=== PATIENT | female | born 1965 | race Caucasian/White ===

== ENCOUNTER 2023-12-03 15:29 | Emergency (ER) | payer OTHER, SELFPAY ==
[2023-12-03 15:58] VITALS: BP 162/92; PULSE 76; RESP 16; TEMP 36.7; O2SAT 98; BMI 27.2
--- NOTE | 2023-12-03 17:31 | ED.SKABFB ---
HPI - Skin/Abscess/Foreign Bdy General Chief complaint: Skin/Abscess/Foreign Body Stated complaint: finger lac Time Seen by Provider: 12/03/23 16:48 Source: patient and RN notes reviewed Mode of arrival: ambulatory Limitations: no limitations History of Present Illness ED Provider: Lidia Jeong PA-C HPI narrative: This is a 58-year-old female, with no known medical problems, who presents emergency department complaints of right 5th digit laceration which occurred today. Patient states that she was reaching into her back and accidentally lacerated her right 5th finger on a shaving razor. The area immediately started bleeding. She is unsure when her last tetanus was. No other complaints or concerns at this time. MD complaint: laceration Onset (ago): hour(s) Tetanus up to date: unsure Severity: moderate Quality: aching Pain Consistency: constant Relieving factors: none Exacerbating factors: none Context: none Associated symptoms: denies other symptoms Treatments prior to arrival: none Related Data Allergies Allergy/AdvReac Type Severity Reaction Status Date / Time No Known Allergies Allergy Verified 12/03/23 16:00 Review of Systems Review of Systems: Yes all other systems are reviewed and are negative Constitutional: Constitutional: Reports as per [facility] Social History Social History Advance Directives: No Advance Directives Information Provided: No Physical Exam Vital Signs: Vital Signs: Last Vital Signs Temp 98.1 F 12/03/23 18:11 Pulse 72 12/03/23 18:11 Resp 16 12/03/23 18:11 BP 158/78 H 12/03/23 18:11 Pulse Ox 98 12/03/23 18:11 O2 Del Method Room Air 12/03/23 18:11 BMI result Body Mass Index 27.2 Const: General: cooperative, comfortable and no acute distress Orientation/consciousness: patient oriented x3 Limitations: no limitations HEENT: Head: Yes normal to inspection, Yes normocephalic and Yes atraumatic Ears: hearing grossly normal bilaterally General nose exam: Normal external nose present Face and sinus: Yes normal facial exam Mouth: Normal oral and palatal mucosa present, oropharynx normal and moist mucous membranes Throat: Yes posterior oropharynx normal Eyes: General: appearance normal, both eyes and all related structures Eyelids: Yes eyelids normal Conjunctivae: conjunctivae normal Sclerae: sclerae normal Pupils: Equal, round and reactive pupils present EOM: EOMs intact bilaterally Neck: Neck: Yes normal visual inspection, Yes full ROM and Yes no lymphadenopathy Lymphatic: no lymphadenopathy noted Chest: Chest palpation & inspection: normal inspection of the chest Resp: Effort & Inspection: normal respiratory effort and able to speak in complete sentences Cardio: Rate: regular rate Rhythm: regular rhythm GI: Inspection: Yes normal to inspection Skin: Other: Right 5th digit, palmar aspect there is a superficial avulsion type laceration measuring approximately 1 cm x 1 cm, active bleeding noted. Full range of motion of the DIP and PIP. Strong radial pulse. General skin exam: no rashes or lesions noted Trauma: no lacerations or abrasions Wounds: no wounds Neuro: General: patient oriented x3 and moves all extremities Cranial nerves: Yes Equal, round and reactive pupils present Extrem: Other: Right 5th digit palmar aspect at the DIP there is a superficial avulsion laceration noted, active bleeding noted. Strong radial pulse. Full range of motion of the digit without difficulty. General: Yes normal to inspection Right upper extremity: normal to inspection Left upper extremity: normal to inspection Right lower extremity: normal to inspection Left lower extremity: normal to inspection Medications Administered Discontinued Medications Generic Name Dose Route Start Last Admin Trade Name Freq PRN Reason Stop Dose Admin Diphtheria/Tetanus/Acell Pertussis 0.5 ml 12/03/23 17:37 12/03/23 18:00 Diphth,Pertus(Acell),Tet Adult 0.5 Ml Syringe IM 12/03/23 17:38 0.5 ml .ONCE ONE Administration Medical Decision Making Medical Decision Making MDM Narrative: This is a 58-year-old female, with no known medical problems, presents emergency department with complaints of 5th digit laceration which occurred just prior to arrival. She was reaching into a bag and accidentally lacerated her right 5th digit on a razor. Arrival, patient mildly hypertensive at 162/92, all other vital signs within normal limits. Wound was cleansed and dressed using Surgicel, hemostasis achieved, see procedure note. Given wound care instructions. Updated tetanus. Given return precautions. She understands and agrees with plan. Stable for discharge. Differential Diagnosis Differential Diagnoses: The differential diagnosis associated with the presentation includes Laceration, contusion, foreign body, abrasion Procedures Procedure Narrative Procedure Narrative: Right 5th digit cleansed extensively with Betadine and saline. Hemostat applied to wound, hemostasis achieved after 10 minutes. Wound wrapped with gauze. Patient tolerated procedure well without any complications or concerns. Laceration Laceration 1: Site: hand Side (If applicable): right Size (cm): 1.5 Description: other Skin layer closed with: other (Surgicel) Discharge Plan Discharge Clinical Impression: Laceration of finger of right hand Patient Disposition: Home, Self-Care Instructions: Laceration (ED), Laceration Without Closure (ED) Additional Instructions: You were seen in the emergency department after lacerating your right fifth digit. We applied surgicel to the finger which stopped the bleeding. You may change dressing daily. Submerge wound in 3 days, this should start to lift the Surgicel up off the finger. Do not pick at wound. If any new or worsening symptoms occur including but not limited to increased redness, swelling, drainage, fevers, chills, please return for re-evaluation. Take ibuprofen and/or Tylenol for pain. Interventions: ED Discharge Assessment Last Done: 12/03/23 18:11 Discharge Date/Time: 12/03/23 18:12 Print Language: Egyptian
[2023-12-03] MEDS: Diphth,Pertus(ACell),Tet Adult 0.5 ML SYRINGE IM (18:00)
[2023-12-03 18:11] VITALS: BP 158/78; PULSE 72; RESP 16; TEMP 36.7; O2SAT 98
== END 2023-12-03 18:12 | disposition home or self-care (01) ==
PROVIDERS: Emergency Provider Internal Medicine; PCP Family Medicine
DX: S61.216A Laceration without foreign body of right little finger without damage to nail, initial encounter (principal); W26.9XXA Contact with unspecified sharp object(s), initial encounter; Y93.9 Activity, unspecified; Y92.9 Unspecified place or not applicable; Y99.9 Unspecified external cause status; Z23 Encounter for immunization
CPT/HCPCS: 12001; 90471; 90715; 99282; 99284